=== PATIENT | female | born 1950 | race Caucasian/White ===

== ENCOUNTER 2017-07-17 00:24 | Day surgery (SDC) | payer MEDICARE, OTHER ==
[~2017-07-17] VITALS: Ht 172.7 cm; Wt 72.6 kg
[~2017-07-17 00:24] MED LIST: CAR200 PO; CARB-91 PO; CHOL200025 PO; CLOB15OI16 TOP; CLOB15OI16 TP; DIV500 PO; DIV500ER PO; DIVA-6 PO; DIVA500T98 PO; FLU180SY9 IM; FLU45SYR25 IM ONLY; HYDR15CR4 TP; LAMO100T52 PO; LISI-362 PO; METH4TAB66 PO; PNEI IJ; PNEU0.5D3 IM
[2017-07-17] MEDS ORDERED: LIDOCAINE MPF 1% 5 ML VIAL ONE (07:04)
[2017-07-17] MEDS ORDERED: PROPOFOL EMUL(*) 10MG/ML 20 ML 60 ML ONE (07:04)
[2017-07-17 07:07] VITALS: BP 172/91
--- NOTE | 2017-07-17 07:19 | Post Operative Progress Note ---
Post Operative Progress Note Date: Jul 17, 2017 Time: 08:34 Surgeon: ronald Anesthesia: dr melissa Pre-Op Diagnosis: personal history of polyps Post-Op Diagnosis: 1 mm polyp in cecum, 3 mm polyp right colon, 4 mm polyp in transverse colon, 8 mm polyp at 40 cm and 5 mm polyp at 20 cm Procedure(s): colonoscopy and polypectomies DEL HERRING MD Jul 17, 2017 07:19
[2017-07-17] MEDS ORDERED: NORMOSOL R SOLN(*) 1000 ML BAG 1,000 ML IV PRN (07:20)
[2017-07-17] MEDS ORDERED: MIDAZOLAM 2 MG/2 ML VIAL IVP PRN (07:20)
[2017-07-17] MEDS ORDERED: LIDOCAINE/SOD BICARB 8.4% SYR ID ONE (07:20)
--- NOTE | 2017-07-17 07:20 | Short(Outpt) Discharge Summary ---
Discharge Summary Reason for Hosp/Final Diag: (1) Encounter for colonoscopy due to history of colonic polyp Hospital Course & Plan: multiple colon polyps Departure Discharge to: Home Discharge Instructions Home Meds Reported Medications Divalproex Sodium (DIVALPROEX SODIUM) 500 Mg Tablet.dr, 1.5 TAB PO DAILY, TAB 06/04/16 Lamotrigine (LAMOTRIGINE) 100 Mg Tablet, 1 TAB PO DAILY, TAB 06/04/16 Discontinued Scripts Lisinopril (LISINOPRIL) 10 Mg Tablet, 1 TAB PO QDAY, #30 TAB 0 Refills Prov:FRANCESCO BAEZA APRN FURNACE BRAZER-C 05/20/17 Diet: Regular Activity: As Tolerated DEL HERRING MD Jul 17, 2017 07:20
[2017-07-17 08:34] VITALS: BP 102/67
[2017-07-17 08:44] VITALS: BP 111/69
[2017-07-17 09:13] VITALS: BP 122/77
[2017-07-17 09:20] VITALS: BP 137/85
[2017-07-17 09:22] VITALS: BP 151/83
--- NOTE | 2017-07-17 11:36 | NACHTIGAL COLONOSCOPY ---
EVENT DATE: July 17, 2017 SURGEON: Avery Dorsey MD ANESTHESIOLOGIST: Fortunato Mohr MD ANESTHESIA: Sedation PREOPERATIVE DIAGNOSIS Personal history of polyps. POSTOPERATIVE DIAGNOSIS Multiple colonic polyps. PROCEDURE PERFORMED Colonoscopy with polypectomies. DESCRIPTION OF PROCEDURE The patient was placed in the left lateral decubitus position and given intravenous sedation. Rectal exam was unremarkable. The flexible colonoscope was inserted and advanced to the cecum. She had an excellent bowel prep. The ileocecal valve, base of the cecum and appendiceal orifice were identified. Adjacent to the appendiceal orifice was a 1 mm projection. This was removed with the cold cup from the right colon. She had a 3 mm polypoid projection. This was removed with the polypectomy snare and retrieved. In the transverse colon, she had a 4 mm polyp. This was removed with the polypectomy snare and retrieved. At 40 cm, she had a larger 8 mm polyp. This was removed with the polypectomy snare, cautery and retrieved. At 20 cm, she had a 5 mm polyp. This was removed with the polypectomy snare, cautery and retrieved. The rectum was normal. Scope was retroflexed; that appeared to be normal. She needs a repeat colonoscopy in five years. ROSALIA
== END 2017-07-17 09:37 | disposition short-term general hospital (02) ==
LOC: OR 00:24
PROVIDERS: ATTEND Surgery
DX: Z12.11 Encounter for screening for malignant neoplasm of colon (principal); D12.3 Benign neoplasm of transverse colon; Z86.010 Personal history of colon polyps
CPT/HCPCS: 45380; 45385; 88305; J2001; J2704

== ENCOUNTER → 2018-02-16 | Outpatient (CLI) | payer MEDICARE, OTHER ==
[~2018-02-16] MED LIST changes: +CLOT45CR43 TOP; -DIVA-6 PO; +DIVA500T47 PO
== END ==
LOC: LAB 16:25
PROVIDERS: ATTEND Nurse Practitioner Primary Care
DX: N89.8 Other specified noninflammatory disorders of vagina (principal)
CPT/HCPCS: 87210

== ENCOUNTER → 2018-05-19 | Outpatient (CLI) | payer MEDICARE, OTHER ==
[~2018-05-19] MED LIST changes: +FLU180SY11 IM
[2018-05-19 14:13] LABS: PLATELET COUNT, AUTOMATED 229 K/uL (150-450)
[2018-05-19 16:13] LABS: LDL CHOLESTEROL 109 mg/dl
== END ==
LOC: LAB 13:40
PROVIDERS: ATTEND Nurse Practitioner Family
DX: I10 Essential (primary) hypertension (principal); E78.5 Hyperlipidemia, unspecified; K76.0 Fatty (change of) liver, not elsewhere classified; Z79.899 Other long term (current) drug therapy
CPT/HCPCS: 36415; 80164; 82040; 82247; 82310; 82374; 82435; 82465; 82565; 82947; 83718; 84075; 84132; 84155; 84295; 84443; 84450; 84460; 84478; 84520; 85025

== ENCOUNTER → 2018-06-25 | Outpatient (CLI) | payer MEDICARE, OTHER ==
--- NOTE | 2018-06-25 14:48 | RADIOLOGY IMAGING REPORT ---
[place] [facility] [place]IENT NAME: Alyssia Rhodes : 1950 MR: [id number] V: [id number] EXAM DATE: ORDERING PHYSICIAN: FRANCESCO BAEZA TECHNOLOGIST: Location: [facility] Patient: Alyssia Rhodes : 1950 Visit/Account:[id number] Date of Sevice: 06/25/2018 DEXA Scan Clinical history: Osteopenia, postmenopausal. Comparison: DEXA scan from 06/13/2016. LUMBAR SPINE: The bone mineral density (BMD) measured from L1-L4 correlates with a Z-score of 0.1 and a T-score of -1.4 which is osteopenia as defined by the World Health Organization. The corresponding risk of frac ture in the lumbar spine is 2-3 times increased compared with a young adult reference population. Th is value has increase by five % since the prior study. More than 5% change is considered significant . HIP: Bone mineral density (BMD) measured in the LEFT total hip region correlates with a Z-score -0.8 and a T-score of -2.1 which is osteopenia as defined by the World Health Organization. The corresponding risk of fracture in the hip is 4-6 times increased compared to a young adult reference population. Th is value has decrease by 0.4 % since the prior study. More than 5% change is considered significant. T score left femoral neck -2.4 Bone mineral density (BMD) measured in the Femoral Neck region measures 0.707 g/cm?. IMPRESSION: 1. Lumbar spine: Osteopenia. There has been 5% increase in the bone mineral density since the previ ous exam. 2. Left Total Hip: Osteopenia. There has been 0.4% decrease in the bone mineral density since the p revious exam. 3. Femoral Neck: Bone Mineral Density is 0.707 g/cm? The next DEXA scan of this patient should include the following sites: L1-L4 and the left hip. FRAX? WHO Fracture Risk Assessment Tool link: <http://www.shef.ac.uk/FRAX/tool.jsp?locationValue=9> PLEASE NOTE: 1) The World Health Organization defines low BMD as follows: T-score Normal > -1 Osteopenia < -1 and > -2.5 Osteoporosis < -2.5 without fractures Established osteoporosis < -2.5 with fractures 2) In general, you may wish to consider: Diagnosis Treatment Follow-up DEXA Normal BMD Prevention 2-3 years Osteopenia Prevention/therapy 1-2 years Osteoporosis Therapy Yearly 3) Fracture risk estimated from the T-score is more accurate for vertebral fractures (often spontane ous) than for hip fractures. Report Dictated By: Julissa Gallo MD at 06/25/2018 2:41 PM Report E-Signed By: Julissa Gallo MD at 06/25/2018 2:44 PM WSN:JOSE
--- NOTE | 2018-06-26 09:52 | RADIOLOGY IMAGING REPORT ---
FACILITY: [facility] PATIENT NAME: ROME BERNARD : [id number] MR: [id number] V: [id number] EXAM DATE: ORDERING PHYSICIAN: FRANCESCO BAEZA TECHNOLOGIST: Kasey Marks PROCEDURE:BILATERAL DIGITAL SCREENING MAMMOGRAM WITH CAD ASSISTED INTERPRETATION & 3D TOMOSYNTHESIS COMPARISON:Prior mammograms 06/13/16, 08/29/11. INDICATIONS:SCREENING FINDINGS: The breasts are heterogeneously dense which may obscure small masses. The parenchymal pattern has remained stable allowing for difference in mammographic technique & patient positioning. There is no evidence of malignant appearing mass, malignant appearing calcifications or other secondary sign of malignancy in either breast. DIAGNOSTIC CATEGORY 1--NEGATIVE. RECOMMENDATIONS: ROUTINE MAMMOGRAM AND CLINICAL EVALUATION. IMPRESSION: BIRADS 1: Negative. No significant abnormality is seen. Dictated by: Julissa Gallo M.D. on 06/25/2018 at 16:37 Transcribed by: GILLIAN on 06/26/2018 at 8:43 Approved by: Julissa Gallo M.D. on 06/26/2018 at 9:51 [facility]
== END ==
LOC: MAMO 01:16
PROVIDERS: ATTEND Nurse Practitioner Family
DX: Z13.820 Encounter for screening for osteoporosis (principal); Z12.31 Encounter for screening mammogram for malignant neoplasm of breast; M85.89 Other specified disorders of bone density and structure, multiple sites
CPT/HCPCS: 77063; 77067; 77080